=== PATIENT | male | born 1950 | race Caucasian/White ===

== ENCOUNTER 2016-08-03 10:00 | Inpatient (IN) ==
[2016-08-03 12:11] LABS: Basophils # (Auto) 0 K/mcL (0.0-0.3); Basophils % (Auto) 0.7 % (0.0-2.0); Eosinophils # (Auto) 0.1 K/mcL (0.0-0.7); Eosinophils % (Auto) 1.4 % (0.0-7.0); Granulocytes % (Auto) 59.3 % (38.0-78.0); Lymphocytes # (Auto) 1.5 K/mcL (1.5-4.8); Lymphocytes % (Auto) 27.2 % (15.5-49.0); Mean Cell Volume 94.7 fL (80.0-100.0); Mean Corpuscular HGB Conc 32.3 g/dL (31.0-36.0); Mean Corpuscular Hemoglobin 30.6 pg (26.0-34.0); Monocytes # (Auto) 0.6 K/mcL (0.1-0.9); Monocytes % (Auto) 11.4 % (1.0-9.0); Platelet Count 340 K/mcL (140-440); Red Cell Distribution Width 14.3 % (11.5-14.5)
[2016-08-03 12:12] LABS: Blood Urea Nitrogen 16 mg/dl (8-23)
[2016-08-03 13:37] LABS: Appearance,Urine CLEAR; Bilirubin,Urine NEG (NEG); Color,Urine YELLOW; Glucose,Urine (UA) NEGATIVE (NEG); Leukocyte Esterase,Urine NEG /uL (NEG); Nitrate,Urine NEG (NEG); Protein,Urine NEG (NEG); Urine Blood NEG mg/dL (<0.03); Urobilinogen,Urine NEG (NEG)
[2016-08-10] MEDS ORDERED: CLINDAMYCIN 900 MG in DEXTROSE 5% IN WATER 50 ML IV SCH (06:00)
[2016-08-10] MEDS ORDERED: PHENYLEPHRINE 10 MG/ML VIAL IV ONE (11:30)
[2016-08-10] MEDS ORDERED: KETAMINE 100 MG/ML ML IV ONE (11:30)
[2016-08-10] MEDS ORDERED: GLYCOPYRROLATE 0.2 MG/ML VIAL IV ONE (11:30)
[2016-08-10] MEDS ORDERED: LIDOCAINE HCL/PF 100 MG/5 ML SYRINGE IV ONE (11:30)
[2016-08-10] MEDS ORDERED: MIDAZOLAM 5 MG/5 ML VIAL IV ONE (11:30)
[2016-08-10] MEDS ORDERED: PROPOFOL 200 MG/20 ML VIAL IV ONE (11:30)
[2016-08-10] MEDS ORDERED: fentaNYL 100 MCG/2 ML VIAL IV ONE (11:30)
[2016-08-10] MEDS ORDERED: ONDANSETRON 4 MG/2 ML VIAL IV ONE (11:30)
[2016-08-10] MEDS ORDERED: GENTAMICIN SULFATE 800 MG/20 ML VIAL IR ONE (12:14)
[2016-08-10] MEDS ORDERED: ePHEDrine 50 MG/ML AMPUL IV PRN (12:20)
[2016-08-10] MEDS ORDERED: IPRATROPIUM/ALBUTEROL 3 ML AMPUL.NEB NEB PRN (12:20)
[2016-08-10] MEDS ORDERED: METHOCARBAMOL 1,000 MG/10 ML VIAL IV PRN (12:20)
[2016-08-10] MEDS ORDERED: PROMETHAZINE 25 MG/ML VIAL IV PRN (12:20)
[2016-08-10] MEDS ORDERED: MEPERIDINE 25 MG/ML SYRINGE IV PRN (12:20)
[2016-08-10] MEDS ORDERED: BENZOCAINE/MENTHOL 1 LOZENGE PO PRN (12:20)
--- NOTE | 2016-08-10 12:40 | Brief Operative Note ---
Date of procedure: 08/10/16 Pre-op diagnosis: right greater trochanter fx, bursitis, IT band tendonitis Post-op diagnosis: same Procedure: right greater trochanter ORIF, bursectomy, IT band lengthening Grafts/Implants: Yes Anesthesia: spinal Complications: none Surgeon: Rick Russo Manager Finance: Nagi Donovan Estimated blood loss (cc): 50 Specimens Removed/Pathology: none sent Condition: stable Disposition: PACU
--- NOTE | 2016-08-10 12:40 | Discharge Summary ---
Ortho Discharge Plan - General - Patient Instructions Diet: Regular Diet Activity: partial weight bearing Dressing Care: May shower in 2 days - Follow Up Plan Disposition: Home, Self-Care Prognosis: Good Rehab Potential: Good I certify that the patient requires SNF services: Yes Overall status at discharge: patient is progressing back to baseline
[2016-08-10] MEDS ORDERED: HYDROmorphone 2 MG/ML SYRINGE IV PRN (12:41)
[2016-08-10] MEDS ORDERED: BUPIVACAINE W/EPI 0.5% 50 ML VIAL IJ ONE (12:42)
[2016-08-10] MEDS ORDERED: LACTATED RINGERS 1,000 ML IV SCH ×2 (12:45)
[2016-08-10] MEDS: fentaNYL 100 MCG/2 ML VIAL IV PRN ×4 (13:20→13:33)
[2016-08-10] MEDS: HYDROmorphone 2 MG/ML SYRINGE IV PRN ×4 (13:25→13:40)
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
[2016-08-10] MEDS ORDERED: 0.9 % SODIUM CHLORIDE 10 ML SYRINGE IV SCH (14:00)
[2016-08-10] MEDS: HYDROcodone/APAP 10/325MG TABLET PO PRN ×2 (14:51→19:25)
[2016-08-11] MEDS ORDERED: ASPIRIN 325 MG ENTERIC COATED TABLET PO SCH (09:00)
== END 2016-08-10 21:44 | disposition home or self-care (01) | DRG 482 ==
LOC: MEDSUR 08-10 09:45 → EDSTATUS 08-10 11:30 → MEDSUR 08-10 11:57
PROVIDERS: ADMIT Orthopaedic Surgery Sports Medicine; ATTEND Orthopaedic Surgery Sports Medicine
PROC: ORIFHIP (2016-08-10 11:26)

== ENCOUNTER 2017-07-21 15:15 | Observation (INO) ==
[2017-07-21] MEDS ORDERED: IOPAMIDOL 100 ML BOTTLE IV ONE (15:16)
[2017-07-21] MEDS ORDERED: DILTIAZEM 25 MG/5 ML VIAL IV ONE (15:32)
[2017-07-21] MEDS ORDERED: DILTIAZEM 125 MG/25 ML VIAL IV ONE ×2 (15:44→15:45)
[2017-07-21] MEDS ORDERED: DILTIAZEM 125 MG in DEXTROSE 5% IN WATER 100 ML IV SCH (15:45)
[2017-07-21] MEDS ORDERED: 0.9 % SODIUM CHLORIDE 1,000 ML IV ONE (15:47)
[2017-07-21 16:37] LABS: Basophils # (Auto) 0 K/mcL (0.0-0.3); Basophils % (Auto) 0.5 % (0.0-2.0); Eosinophils # (Auto) 0.1 K/mcL (0.0-0.7); Granulocytes % (Auto) 69.3 % (38.0-78.0); Lymphocytes # (Auto) 2.4 K/mcL (1.5-4.8); Lymphocytes % (Auto) 21.9 % (15.5-49.0); Mean Cell Volume 93.7 fL (80.0-100.0); Monocytes # (Auto) 0.8 K/mcL (0.1-0.9); Monocytes % (Auto) 7.3 % (1.0-12.0); Platelet Count 313 K/mcL (140-440); RBC 4.77 M/mcL (4.50-5.90); Red Cell Distribution Width 14.6 % (11.5-14.5)
--- NOTE | 2017-07-21 16:43 | Cat Scan Report ---
CLINICAL INFORMATION: Chest pain. Dyspnea. COMPARISON: Previous chest x-ray dated 11/26/2016 TECHNIQUE: Axial images obtained through the chest. 80 mL intravenous contrast was administered, and scanning was performed during pulmonary arterial phase. Sagittally and coronally reformatted images were obtained. MIP reformatted images. FINDINGS: Main pulmonary artery, right pulmonary artery, left pulmonary artery are negative. No lobar or segmental abnormality. Pulmonary embolism. Mild centrilobular emphysema. Clinical correlation for smoking history recommended. No parenchymal consolidation. No pulmonary parenchymal mass. 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 Cross-sectional diameter measures 3.2 cm. A sending aorta measures 4.1 cm. There is calcified coronary artery disease. No pleural fluid. No pericardial fluid. No axillary adenopathy. No mediastinal or hilar adenopathy. Upper abdomen is negative. IMPRESSION: 1. Negative pulmonary CTA 2. Mild centrilobular emphysema 3. Ectasia of the descending thoracic aorta. Calcified coronary artery disease Interpreted and Authenticated by: Rick Mix 07/21/17
[2017-07-21 17:09] LABS: ALT/SGPT 14 U/l (0-40); Albumin 3.9 gm/dL (3.2-5.2); Albumin/Globulin Ratio 1.5 (1.0-2.3); Alkaline Phosphatase 59 U/L (39-117); Blood Urea Nitrogen 23 mg/dl (8-23)
--- NOTE | 2017-07-21 17:32 | Emergency Department Note ---
Arrhythmia/Palpitations HPI - General Chief Complaint: Arrhythmia/Palpitations Stated Complaint: afib, sob, back pain Time Seen by Provider: 07/21/17 15:25 Source: patient Mode of arrival: ambulatory Limitations: no limitations - History of Present Illness HPI Narrative: 66-year-old male with prior history of atrial fibrillation but no episodes in the last 6 months came in yesterday evening for an episode of atrial fibrillation with rapid ventricular response and increased blood pressure. He was treated by Dr. damon, who then released him to home at 3 AM. He was instructed to increase his metoprolol.He is not anticoagulated He comes back this evening after a syncopal episode and upper back and shoulder pain. He did fall when he had the syncopal episode but he did not injure himself or hurt his head. No headache. Lasted just a couple seconds. However more concerning is he has had multiple several second runs of V. tach. Unclear what triggered this episode of atrial fibrillation but he does report recently starting gabapentin for swelling in his hand-he has had a full workup including orthopedic hand consultation. The swelling has improved on this medicine but now he has this repeat episode of atrial fibrillation. Reviewed previous echocardiogram from 6 months ago on workup from previous episode of A. fib shows no abnormalities with an ejection fraction of 70%. - Related Data Home Medications Medication Instructions Recorded Confirmed Aspirin [Ecotrin] 325 mg PO ONCE 08/03/16 07/20/17 Previous Rx's Medication Instructions Recorded lisinopril 10 mg tablet 10 mg PO BID 90 Days #180 tab 03/07/17 metoprolol succinate ER 25 mg 25 mg PO QDAY #90 tab 06/06/17 tablet,extended release 24 hr Metoprolol Succinate [Toprol Xl] 25 mg PO BID #60 tab.xl.24h 07/20/17 gabapentin 100 mg capsule 100 mg PO TID #30 cap 07/20/17 Allergies Allergy/AdvReac Type Severity Reaction Status Date / Time Penicillins Allergy Severe Anaphylaxis Verified 07/20/17 22:15 Review of Systems All systems ED: reviewed and negative except as stated. Past Medical History - Past Medical History Attestation: Yes: The following information was validated with the patient. Medical history: Reports: atrial fibrillation, hypertension, kidney stones, other (trochanteric fracture of right femur. Meningitis. Colonoscopy. Chronic back pain and neck pain. Stomach ulcer.). Denies: coronary artery disease Surgical history ED: Reports: hip replacement, other (Partial gastrectomy, back surgery, lithotripsy) - Social History smoking status: Former smoker Alcohol use: Reports: None Drug use: Reports: none Physical Exam No acute distress resting comfortably. Normocephalic atraumatic. Conjunctive are clear sclerae nonicteric. No nasal discharge or congestion. Oropharynx pink moist. Neck is supple without lymphadenopathy thyromegaly or carotid bruit. Heart is irregularly irregular rhythm. No murmur appreciated. Lungs are clear to auscultation bilaterally without wheezes rales rhonchi or respiratory distress. Abdomen soft nontender nondistended. +2 radial pulse. His left hand has some mild edema with some redness over the MCP joints-patient says this is improved. He is able to move that hand normally. No pedal edema. Alert and oriented Limitations: no limitations Course Vital Signs Temperature 98.8 F 07/21/17 15:16 Pulse Rate 137 H 07/21/17 15:16 Respiratory Rate 17 07/21/17 15:16 Blood Pressure 121/78 07/21/17 15:16 Pulse Oximetry (%) 98 07/21/17 15:16 Temperature 98.8 F 07/21/17 15:16 Pulse Rate 66 07/21/17 18:20 Respiratory Rate 14 07/21/17 18:20 Blood Pressure 114/67 07/21/17 18:16 Pulse Oximetry (%) 98 07/21/17 18:20 Arrhythmia/Palpitations - Lab Data Lab results reviewed: Yes I reviewed the patient's lab results. Result diagrams: 07/21/17 16:01 07/21/17 16:01 Lab Results 07/21/17 07/21/17 07/21/17 Range/Units 16:01 16:01 16:01 WBC 11.0 (4.5-11.0) K/mcL RBC 4.77 (4.50-5.90) M/mcL Hgb 14.8 (13.5-16.5) g/dL Hct 44.7 (41.0-55.0) % POC Hct 45.0 (41.0-55.0) % MCV 93.7 (80.0-100.0) fL MCH 31.0 (26.0-34.0) pg MCHC 33.0 (31.0-36.0) g/dL RDW 14.6 H (11.5-14.5) % Plt Count 313 (140-440) K/mcL MPV 8.5 (7.4-10.4) fL Gran % 69.3 (38.0-78.0) % Lymph % (Auto) 21.9 (15.5-49.0) % Archer % (Auto) 7.3 (1.0-12.0) % Eos % (Auto) 1.0 (0.0-7.0) % Baso % (Auto) 0.5 (0.0-2.0) % Gran # 7.6 (1.8-8.0) K/mcL Lymph # (Auto) 2.4 (1.5-4.8) K/mcL Archer # (Auto) 0.8 (0.1-0.9) K/mcL Eos # (Auto) 0.1 (0.0-0.7) K/mcL Baso # (Auto) 0 (0.0-0.3) K/mcL POC Sodium 139 (133-145) mmol/L Sodium 134 (133-145) mmol/L POC Potassium 4.1 (3.3-5.1) mmol/L Potassium 4.1 (3.3-5.1) mmol/L POC Chloride 107 (96-108) mmol/L Chloride 99 (96-108) mmol/L Carbon Dioxide 18 L (22-30) mmol/L POC Total CO2 21 L (22-30) mmol/L Anion Gap 17.0 H (8-16) POC BUN 26 H (8-23) mg/dl BUN 23 (8-23) mg/dl Creatinine 1.1 (0.7-1.2) mg/dl POC Creatinine 1.1 (0.7-1.2) mg/dl GFR Calculation 69 Glucose 83 (70-105) mg/dL POC Glucose 83 (70-105) mg/dL Calcium 9.3 (8.6-10.4) mg/dl POC WB Ioniz Calcium 1.26 (1.16-1.32) mmol/L Magnesium 2.0 (1.6-2.5) mg/dL Total Bilirubin 0.3 (0.0-1.0) mg/dL AST 20 (0-37) U/l ALT 14 (0-40) U/l Alkaline Phosphatase 59 (39-117) U/L Troponin T < 0.01 (0-0.03) ng/ml Total Protein 6.5 (5.9-8.4) gm/dL Albumin 3.9 (3.2-5.2) gm/dL Globulin 2.6 (2.2-3.7) gm/dL Albumin/Globulin Ratio 1.5 (1.0-2.3) TSH 1.37 (0.27-5.01) uIU/ml - Radiology Data Radiology results reviewed: Yes I reviewed the patient's radiology results. CTA of the chest shows emphysema but no acute findings - EKG Data EKG attestation: Yes I reviewed and interpreted this EKG. EKG results narrative: EKG shows a rate of 146 atrial fibrillation rapid ventricular response. 1 PVC. Also reviewed his rhythm strips which showed several runs of V. tach lasting a few seconds at a time. These resolved with rate control on diltiazem drip Critical Care Time Critical Care Time: Yes Total Critical Care Time: 50 Attestation: I spent a total of 50 minutes with this patient including documentation, counseling the patient, reviewing his studies and coordination of care. About half at the bedside Disposition Pt seen by MOUNTING MACHINE OPERATOR/PA only: No Clinical Impression: Atrial fibrillation with RVR, Ventricular tachycardia (paroxysmal) Summary: He was quite anxious on initial exam and interview because the A. fib with RVR and V. tach. We started diltiazem drip as he had already essentially failed outpatient therapy with metoprolol. V. tach resolved with diltiazem Laboratory and CTA did not show any significant comorbidities. Discussed with hospitalist Dr. Menjivar agreed to accept the patient for further treatment, evaluation and monitoring Disposition: Xfer As Inpt ([facility]) Condition: Critical Referrals: Agusto Benavidez PA-C [Primary Care Provider] -
[2017-07-21] MEDS ORDERED: ONDANSETRON 4 MG/2 ML VIAL IV PRN (19:23)
[2017-07-21] MEDS ORDERED: ACETAMINOPHEN 325 MG TABLET PO PRN (19:23)
[2017-07-21] MEDS: METOPROLOL TARTRATE 25 MG TABLET PO SCH (20:37)
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
[2017-07-22] MEDS ORDERED: fentaNYL 100 MCG/2 ML VIAL IV ONE (01:05)
[2017-07-22] MEDS ORDERED: DILTIAZEM 125 MG in DEXTROSE 5% IN WATER 100 ML IV SCH (03:45)
[2017-07-22] MEDS ORDERED: GABAPENTIN 100 MG CAPSULE PO ONE ×2 (05:45→06:03)
[2017-07-22] MEDS ORDERED: DILTIAZEM 125 MG in DEXTROSE 5% IN WATER 100 ML IV PRN (08:15)
[2017-07-22] MEDS: METOPROLOL TARTRATE 25 MG TABLET PO SCH (08:24)
[2017-07-22] MEDS ORDERED: ASPIRIN 325 MG ENTERIC COATED TABLET PO SCH (09:00)
[2017-07-22] MEDS ORDERED: ENOXAPARIN 40 MG/0.4 ML SYRINGE SQ SCH (09:00)
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
== END 2017-07-22 10:35 | disposition home or self-care (01) ==
LOC: ICU 15:15 → ED 15:15 → ICU 19:15
PROVIDERS: ADMIT Specialist; ATTEND Specialist

== ENCOUNTER 2023-04-21 08:52 | Inpatient (IN) ==
[2023-04-21] MEDS ORDERED: IOPAMIDOL 100 ML BOTTLE IV ONE (08:53)
[2023-04-21] MEDS ORDERED: VANCOMYCIN 1,000 MG in 0.9 % SODIUM CHLORIDE 500 ML IV ONE (09:14)
[2023-04-21] MEDS ORDERED: 0.9 % SODIUM CHLORIDE 1,000 ML IV ONE ×2 (09:14→11:00)
[2023-04-21] MEDS ORDERED: CLINDAMYCIN 150 MG CAPSULE PO STA (09:18)
[2023-04-21] MEDS ORDERED: VANCOMYCIN 1,000 MG in 0.9 % SODIUM CHLORIDE 250 ML IV SCH (09:30)
[2023-04-21 09:33] LABS: POC Calcium, Ionized 1.12 (1.16-1.32); POC Creatinine 0.8 (0.6-1.2); POC Potassium 4.2 (3.3-5.1)
[2023-04-21] MEDS ORDERED: HYDROmorphone 1 MG/ML SYRINGE IV ONE (09:35)
[2023-04-21 10:44] LABS: Basophils # (Auto) 0.03 K/mcL (0.00-0.30); Basophils % (Auto) 0.1 % (0.0-2.0); Eosinophils # (Auto) 0 K/mcL (0.00-0.70); Eosinophils % (Auto) 0 % (0.0-7.0); Hematocrit 41.4 % (40.1-51.0); Hemoglobin 13.4 g/dL (13.7-17.5); Lymphocytes # (Auto) 0.35 K/mcL (1.50-4.80); Lymphocytes % (Auto) 1.6 % (15.5-49.0); Mean Corpuscular HGB Conc 32.4 g/dL (31.0-36.0); Mean Platelet Volume 10.1 fL (8.8-12.5); Monocytes # (Auto) 2.22 K/mcL (0.10-0.90); Monocytes % (Auto) 10.2 % (1.0-12.0); Neutrophils % (Auto) 87.3 % (38.0-78.0); Platelet Count 352 K/mcL (140-440); Red Cell Distribution Width 18.3 % (11.5-14.5); WBC 21.8 K/mcL (4.5-11.0)
[2023-04-21 10:51] LABS: Erythrocyte Sedimentation Rate 53 mm/hr (0-20)
[2023-04-21] MEDS ORDERED: KETOROLAC 30 MG/ML VIAL IV ONE (11:09)
[2023-04-21] MEDS ORDERED: methylPREDNISolone SOD SUCC 125 MG/2 ML VIAL IV ONE (11:38)
[2023-04-21] MEDS ORDERED: ZOLPIDEM 5 MG TABLET PO PRN (13:46)
[2023-04-21] MEDS ORDERED: IPRATROPIUM/ALBUTEROL 3 ML AMPUL.NEB NEB PRN (13:46)
[2023-04-21] MEDS ORDERED: VANCOMYCIN PER PHARMACY IV SCH (13:46)
[2023-04-21] MEDS ORDERED: ONDANSETRON 4 MG/2 ML VIAL IV PRN (13:46)
[2023-04-21] MEDS: 0.9 % SODIUM CHLORIDE 1,000 ML IV SCH (14:04)
[2023-04-21] MEDS: 0.9 % SODIUM CHLORIDE 10 ML SYRINGE IV SCH ×2 (14:05→20:03)
[2023-04-21] MEDS: KETOROLAC 30 MG/ML VIAL IV PRN ×2 (14:19→20:11)
[2023-04-21] MEDS: ACETAMINOPHEN 325 MG TABLET PO PRN ×2 (14:19→20:10)
[2023-04-21] MEDS: morphine 4 MG/ML VIAL IV PRN ×2 (14:20→18:15)
[2023-04-21 15:27] LABS: Uric Acid 5.8 mg/dL (2.5-8.0)
[2023-04-21 15:34] LABS: Procalcitonin 0.18 ng/mL (<0.10)
[2023-04-21] MEDS: PIPERACILLIN SODIUM/TAZOBACTAM 3.375 GM in DEXTROSE 5% IN WATER 50 ML IV SCH ×2 (15:46→19:42)
[2023-04-21] MEDS: SENNOSIDES 1 TABLET PO SCH (20:02)
[2023-04-21] MEDS: DOCUSATE SODIUM 100 MG CAPSULE PO SCH (20:03)
[2023-04-21] MEDS: VANCOMYCIN 1,250 MG in 0.9 % SODIUM CHLORIDE 500 ML IV SCH (21:58)
[2023-04-22] MEDS: PIPERACILLIN SODIUM/TAZOBACTAM 3.375 GM in DEXTROSE 5% IN WATER 50 ML IV SCH ×4 (00:49→19:38)
[2023-04-22] MEDS: morphine 4 MG/ML VIAL IV PRN ×4 (01:00→19:38)
[2023-04-22] MEDS: 0.9 % SODIUM CHLORIDE 1,000 ML IV SCH ×2 (02:55→10:24)
[2023-04-22] MEDS: 0.9 % SODIUM CHLORIDE 10 ML SYRINGE IV SCH ×3 (04:46→20:42)
[2023-04-22] MEDS: KETOROLAC 30 MG/ML VIAL IV PRN ×2 (05:37→19:39)
[2023-04-22] MEDS: ACETAMINOPHEN 325 MG TABLET PO PRN ×2 (05:37→19:23)
[2023-04-22 10:06] LABS: ALT/SGPT 16 U/L (<40); AST/SGOT 17 U/L (<40); Albumin 2.9 gm/dL (3.2-5.2); Albumin/Globulin Ratio 1.1 (1.0-2.3); Alkaline Phosphatase 57 U/L (39-117); Bilirubin,Total 0.4 mg/dL (0.1-1.0); Blood Urea Nitrogen 21 mg/dL (8-23); Calcium 8.9 mg/dL (8.6-10.4); Carbon Dioxide 19 mmol/L (22-30); Chloride 103 mmol/L (96-108); Globulin 2.6 gm/dL (2.2-3.7); Glomerular Filtration Rate 93; Glucose 118 mg/dL (70-105)
[2023-04-22] MEDS: DOCUSATE SODIUM 100 MG CAPSULE PO SCH ×2 (10:24→20:42)
[2023-04-22] MEDS: LISINOPRIL 10 MG TABLET PO SCH (10:24)
[2023-04-22] MEDS: MULTIVIT,THER IRON,CA,FA & MIN 1 TABLET PO SCH (10:24)
[2023-04-22] MEDS: ENOXAPARIN 40 MG/0.4 ML SYRINGE SQ SCH (10:24)
[2023-04-22 11:53] LABS: Basophils # (Auto) 0.03 K/mcL (0.00-0.30); Basophils % (Auto) 0.2 % (0.0-2.0); Eosinophils # (Auto) 0.18 K/mcL (0.00-0.70); Hematocrit 43.9 % (40.1-51.0); Hemoglobin 14.2 g/dL (13.7-17.5); Lymphocytes # (Auto) 0.63 K/mcL (1.50-4.80); Lymphocytes % (Auto) 3.6 % (15.5-49.0); Mean Cell Volume 90.3 fL (80.0-100.0); Mean Corpuscular HGB Conc 32.3 g/dL (31.0-36.0); Mean Platelet Volume 10.9 fL (8.8-12.5); Monocytes # (Auto) 1.43 K/mcL (0.10-0.90); Monocytes % (Auto) 8.1 % (1.0-12.0); Neutrophils % (Auto) 86.4 % (38.0-78.0); Platelet Count 240 K/mcL (140-440); RBC 4.86 M/mcL (4.63-6.08); Red Cell Distribution Width 19.1 % (11.5-14.5); WBC 17.6 K/mcL (4.5-11.0)
[2023-04-22] MEDS: oxyCODONE/APAP 10/325MG TABLET PO PRN (13:24)
[2023-04-22] MEDS: SENNOSIDES 1 TABLET PO SCH (20:42)
[2023-04-22] MEDS: VANCOMYCIN 1,250 MG in 0.9 % SODIUM CHLORIDE 500 ML IV SCH (23:13)
[2023-04-23] MEDS: PIPERACILLIN SODIUM/TAZOBACTAM 3.375 GM in DEXTROSE 5% IN WATER 50 ML IV SCH ×5 (00:21→23:12)
[2023-04-23] MEDS: KETOROLAC 30 MG/ML VIAL IV PRN (04:44)
[2023-04-23] MEDS: morphine 4 MG/ML VIAL IV PRN ×4 (05:00→20:46)
[2023-04-23] MEDS: oxyCODONE/APAP 10/325MG TABLET PO PRN ×4 (05:02→20:47)
[2023-04-23] MEDS ORDERED: LORazepam 2 MG/ML VIAL IV ONE (05:14)
[2023-04-23] MEDS ORDERED: LORazepam 2 MG/ML VIAL ONE (05:17)
[2023-04-23] MEDS: 0.9 % SODIUM CHLORIDE 1,000 ML IV SCH ×2 (05:21→05:46)
[2023-04-23] MEDS: 0.9 % SODIUM CHLORIDE 10 ML SYRINGE IV SCH ×3 (06:18→22:07)
[2023-04-23 07:58] LABS: ALT/SGPT 14 U/L (<40); AST/SGOT 17 U/L (<40); Albumin 2.6 gm/dL (3.2-5.2); Albumin/Globulin Ratio 1.3 (1.0-2.3); Alkaline Phosphatase 45 U/L (39-117); Bilirubin,Total 0.4 mg/dL (0.1-1.0); Blood Urea Nitrogen 27 mg/dL (8-23); Calcium 8.3 mg/dL (8.6-10.4); Carbon Dioxide 20 mmol/L (22-30); Chloride 104 mmol/L (96-108); Glomerular Filtration Rate 84; Glucose 93 mg/dL (70-105)
[2023-04-23] MEDS: LISINOPRIL 10 MG TABLET PO SCH (09:22)
[2023-04-23] MEDS: ENOXAPARIN 40 MG/0.4 ML SYRINGE SQ SCH (09:22)
[2023-04-23] MEDS: DOCUSATE SODIUM 100 MG CAPSULE PO SCH (09:23)
[2023-04-23] MEDS: MULTIVIT,THER IRON,CA,FA & MIN 1 TABLET PO SCH (09:23)
[2023-04-23] MEDS ORDERED: LOPERAMIDE 2 MG CAPSULE PO PRN (13:06)
[2023-04-23] MEDS ORDERED: LORazepam 2 MG/ML VIAL IV PRN (19:30)
[2023-04-23] MEDS ORDERED: HYDROmorphone 1 MG/ML SYRINGE ONE (22:05)
[2023-04-23] MEDS: HYDROmorphone 1 MG/ML SYRINGE IV PRN (22:06)
[2023-04-24] MEDS ORDERED: HYDROmorphone 1 MG/ML SYRINGE ONE (05:14)
[2023-04-24] MEDS: PIPERACILLIN SODIUM/TAZOBACTAM 3.375 GM in DEXTROSE 5% IN WATER 50 ML IV SCH ×4 (05:17→23:35)
[2023-04-24] MEDS: HYDROmorphone 1 MG/ML SYRINGE IV PRN ×4 (05:17→22:44)
[2023-04-24] MEDS: 0.9 % SODIUM CHLORIDE 10 ML SYRINGE IV SCH ×3 (06:06→22:44)
[2023-04-24] MEDS: ENOXAPARIN 40 MG/0.4 ML SYRINGE SQ SCH (08:26)
[2023-04-24] MEDS: LISINOPRIL 10 MG TABLET PO SCH (08:27)
[2023-04-24] MEDS: MULTIVIT,THER IRON,CA,FA & MIN 1 TABLET PO SCH (08:27)
[2023-04-24 08:34] LABS: Basophils # (Auto) 0.02 K/mcL (0.00-0.30); Basophils % (Auto) 0.2 % (0.0-2.0); Eosinophils # (Auto) 0.07 K/mcL (0.00-0.70); Eosinophils % (Auto) 0.8 % (0.0-7.0); Hematocrit 36.4 % (40.1-51.0); Hemoglobin 11.1 g/dL (13.7-17.5); Lymphocytes % (Auto) 10.9 % (15.5-49.0); Mean Cell Volume 94.5 fL (80.0-100.0); Mean Corpuscular HGB Conc 30.5 g/dL (31.0-36.0); Mean Platelet Volume 10.2 fL (8.8-12.5); Monocytes # (Auto) 1.11 K/mcL (0.10-0.90); Monocytes % (Auto) 13.4 % (1.0-12.0); Neutrophils % (Auto) 73.4 % (38.0-78.0); Platelet Count 268 K/mcL (140-440); RBC 3.85 M/mcL (4.63-6.08); Red Cell Distribution Width 18.6 % (11.5-14.5); WBC 8.3 K/mcL (4.5-11.0)
[2023-04-24] MEDS: oxyCODONE/APAP 10/325MG TABLET PO PRN (08:39)
[2023-04-24 08:59] LABS: ALT/SGPT 18 U/L (<40); AST/SGOT 23 U/L (<40); Albumin 2.4 gm/dL (3.2-5.2); Alkaline Phosphatase 67 U/L (39-117); Bilirubin,Total 0.5 mg/dL (0.1-1.0); Blood Urea Nitrogen 20 mg/dL (8-23); Calcium 8.4 mg/dL (8.6-10.4); Carbon Dioxide 26 mmol/L (22-30); Chloride 101 mmol/L (96-108); Globulin 2.4 gm/dL (2.2-3.7); Glomerular Filtration Rate 88; Glucose 87 mg/dL (70-105)
[2023-04-24] MEDS: KETOROLAC 30 MG/ML VIAL IV PRN ×2 (10:40→19:26)
[2023-04-25] MEDS: HYDROmorphone 1 MG/ML SYRINGE IV PRN ×4 (04:45→21:15)
[2023-04-25] MEDS: PIPERACILLIN SODIUM/TAZOBACTAM 3.375 GM in DEXTROSE 5% IN WATER 50 ML IV SCH (05:03)
[2023-04-25] MEDS: 0.9 % SODIUM CHLORIDE 10 ML SYRINGE IV SCH ×3 (05:07→21:16)
[2023-04-25] MEDS: KETOROLAC 30 MG/ML VIAL IV PRN ×2 (05:49→17:03)
[2023-04-25 07:17] LABS: Basophils # (Auto) 0.02 K/mcL (0.00-0.30); Basophils % (Auto) 0.3 % (0.0-2.0); Eosinophils % (Auto) 1.3 % (0.0-7.0); Hematocrit 39.2 % (40.1-51.0); Hemoglobin 11.6 g/dL (13.7-17.5); Lymphocytes # (Auto) 0.94 K/mcL (1.50-4.80); Lymphocytes % (Auto) 12.6 % (15.5-49.0); Mean Cell Volume 97.3 fL (80.0-100.0); Mean Corpuscular HGB Conc 29.6 g/dL (31.0-36.0); Mean Platelet Volume 9.6 fL (8.8-12.5); Monocytes # (Auto) 1.17 K/mcL (0.10-0.90); Monocytes % (Auto) 15.6 % (1.0-12.0); Neutrophils % (Auto) 69.1 % (38.0-78.0); Platelet Count 248 K/mcL (140-440); RBC 4.03 M/mcL (4.63-6.08); Red Cell Distribution Width 18.3 % (11.5-14.5); WBC 7.5 K/mcL (4.5-11.0)
[2023-04-25 07:46] LABS: ALT/SGPT 29 U/L (<40); AST/SGOT 33 U/L (<40); Albumin 2.1 gm/dL (3.2-5.2); Albumin/Globulin Ratio 0.7 (1.0-2.3); Alkaline Phosphatase 83 U/L (39-117); Bilirubin,Direct 0.5 mg/dL (<0.3); Bilirubin,Total 0.7 mg/dL (0.1-1.0); Blood Urea Nitrogen 20 mg/dL (8-23); Calcium 8.3 mg/dL (8.6-10.4); Carbon Dioxide 22 mmol/L (22-30); Chloride 101 mmol/L (96-108); Globulin 3.1 gm/dL (2.2-3.7); Glomerular Filtration Rate 88; Glucose 95 mg/dL (70-105); Lactate Dehydrogenase 151 U/L (135-225); Phosphorous 3.1 mg/dL (2.5-4.5); Triglycerides 126 mg/dL (<150); Uric Acid 3.7 mg/dL (2.5-8.0)
[2023-04-25] MEDS ORDERED: FUROSEMIDE 40 MG/4 ML VIAL IV ONE (08:19)
[2023-04-25] MEDS ORDERED: ALBUMIN HUMAN 12.5 GM/50 ML VIAL IV ONE (08:19)
[2023-04-25] MEDS ORDERED: METOPROLOL SUCCINATE 25 MG TAB.XL.24H PO SCH (09:00)
[2023-04-25] MEDS: ENOXAPARIN 40 MG/0.4 ML SYRINGE SQ SCH (11:43)
[2023-04-25] MEDS: MULTIVIT,THER IRON,CA,FA & MIN 1 TABLET PO SCH (11:43)
[2023-04-25] MEDS: LISINOPRIL 10 MG TABLET PO SCH (11:43)
[2023-04-25] MEDS: oxyCODONE/APAP 10/325MG TABLET PO PRN ×2 (12:12→17:02)
[2023-04-25] MEDS ORDERED: FUROSEMIDE 40 MG/4 ML VIAL IV SCH (13:15)
[2023-04-25] MEDS: ceFAZolin 1 GM VIAL IV SCH ×2 (13:17→21:15)
[2023-04-26] MEDS: oxyCODONE/APAP 10/325MG TABLET PO PRN ×2 (03:59→11:37)
[2023-04-26] MEDS: KETOROLAC 30 MG/ML VIAL IV PRN (04:00)
[2023-04-26] MEDS: ceFAZolin 1 GM VIAL IV SCH ×2 (05:15→15:10)
[2023-04-26] MEDS: HYDROmorphone 1 MG/ML SYRINGE IV PRN (05:16)
[2023-04-26] MEDS: 0.9 % SODIUM CHLORIDE 10 ML SYRINGE IV SCH ×2 (05:16→15:11)
[2023-04-26] MEDS: LISINOPRIL 10 MG TABLET PO SCH (09:39)
[2023-04-26] MEDS: MULTIVIT,THER IRON,CA,FA & MIN 1 TABLET PO SCH (09:39)
[2023-04-26] MEDS: ENOXAPARIN 40 MG/0.4 ML SYRINGE SQ SCH (09:39)
[2023-04-28] MEDS ORDERED: VITAMIN D3 25 MCG TABLET PO SCH (09:00)
== END 2023-04-26 14:15 | disposition home or self-care (01) | DRG 603 ==
LOC: ED 08:52 → MEDSUR 13:24
PROVIDERS: ADMIT Internal Medicine; ATTEND Internal Medicine

== ENCOUNTER 2023-04-27 15:46 | Inpatient (IN) ==
[2023-04-27] MEDS ORDERED: IOPAMIDOL 100 ML BOTTLE IV ONE (15:47)
[2023-04-27] MEDS ORDERED: 0.9 % SODIUM CHLORIDE 1,000 ML IV ONE (15:57)
[2023-04-27] MEDS ORDERED: DILTIAZEM 25 MG/5 ML VIAL IV ONE (15:57)
[2023-04-27 16:17] LABS: POC Calcium, Ionized 0.97 (1.16-1.32); POC Creatinine 0.5 (0.6-1.2); POC Potassium 2.5 (3.3-5.1)
[2023-04-27] MEDS ORDERED: POTASSIUM CHLORIDE 20 MEQ TABLET PO ONE (16:29)
[2023-04-27] MEDS ORDERED: POTASSIUM CHLORIDE 40 MEQ in DEXTROSE 5% IN WATER 500 ML IV ONE (16:30)
[2023-04-27 17:08] LABS: Basophils # (Auto) 0.02 K/mcL (0.00-0.30); Basophils % (Auto) 0.2 % (0.0-2.0); Eosinophils # (Auto) 0.07 K/mcL (0.00-0.70); Eosinophils % (Auto) 0.7 % (0.0-7.0); Hemoglobin 9.7 g/dL (13.7-17.5); Lymphocytes # (Auto) 1.11 K/mcL (1.50-4.80); Lymphocytes % (Auto) 10.4 % (15.5-49.0); Mean Cell Volume 93.7 fL (80.0-100.0); Mean Corpuscular HGB Conc 31.3 g/dL (31.0-36.0); Mean Platelet Volume 10.1 fL (8.8-12.5); Monocytes # (Auto) 1.48 K/mcL (0.10-0.90); Monocytes % (Auto) 13.8 % (1.0-12.0); Neutrophils % (Auto) 73.5 % (38.0-78.0); Platelet Count 277 K/mcL (140-440); RBC 3.31 M/mcL (4.63-6.08); Red Cell Distribution Width 17.9 % (11.5-14.5); WBC 10.7 K/mcL (4.5-11.0)
[2023-04-27 17:47] LABS: ALT/SGPT 35 U/L (<40); AST/SGOT 36 U/L (<40); Albumin 2.4 gm/dL (3.2-5.2); Alkaline Phosphatase 72 U/L (39-117); Bilirubin,Total 0.2 mg/dL (0.1-1.0); Blood Urea Nitrogen 13 mg/dL (8-23); Calcium 6.7 mg/dL (8.6-10.4); Carbon Dioxide 17 mmol/L (22-30); Chloride 109 mmol/L (96-108); Globulin 2.5 gm/dL (2.2-3.7); Glomerular Filtration Rate 107; Glucose 89 mg/dL (70-105)
[2023-04-27] MEDS ORDERED: MAGNESIUM OXIDE 400 MG TABLET PO ONE (18:19)
[2023-04-27] MEDS: DILTIAZEM 125 MG in DEXTROSE 5% IN WATER 100 ML IV SCH (18:21)
[2023-04-27] MEDS ORDERED: oxyCODONE IR 5 MG TABLET PO ONE (18:34)
[2023-04-27] MEDS ORDERED: CALCIUM GLUCONATE 4.65 MEQ/10 ML VIAL IV ONE (19:21)
[2023-04-27] MEDS ORDERED: CALCIUM GLUCONATE 9.3 MEQ in DEXTROSE 5% IN WATER 50 ML IV ONE (19:45)
[2023-04-27 21:05] LABS: Anisocytosis 2+ (None Seen); Basophils % (Manual) 1 % (0-2); Hypochromasia 1+ (None Seen); Lymphocytes % 12 % (15-49); Monocytes % (Manual) 11 % (1-12); Platelet Estimate NORMAL (Normal); RBC Morphology ABNORMAL (Normal); Reactive Lymphocytes 1 % (0-2); Segmented Neutrophils % 75 % (38-78)
[2023-04-27 21:34] LABS: Thyroid Stimulating Hormone 2.53 uIU/mL (0.27-5.01)
[2023-04-27] MEDS ORDERED: CLINDAMYCIN IN 0.9 % SOD CHLOR 600 MG/50 ML BAG IV ONE (21:51)
[2023-04-27] MEDS ORDERED: POLYETHYLENE GLYCOL 3350 17 GM PACKET PO PRN (22:31)
[2023-04-27] MEDS ORDERED: FUROSEMIDE 40 MG/4 ML VIAL IV ONE ×2 (22:31→23:15)
[2023-04-27] MEDS ORDERED: MAGNESIUM SULFATE 2 GM/50 ML BAG IV PRN (22:31)
[2023-04-27] MEDS ORDERED: MAGNESIUM SULFATE 1 GM/100 ML BAG IV ONE (22:31)
[2023-04-27] MEDS ORDERED: ONDANSETRON 4 MG/2 ML VIAL IV PRN (22:31)
[2023-04-27] MEDS ORDERED: IPRATROPIUM/ALBUTEROL 3 ML AMPUL.NEB NEB PRN (22:31)
[2023-04-27] MEDS ORDERED: SENNOSIDES 1 TABLET PO PRN (22:31)
[2023-04-27] MEDS ORDERED: METOPROLOL TARTRATE 5 MG/5 ML VIAL IV PRN (22:31)
[2023-04-27] MEDS ORDERED: ALBUMIN HUMAN 12.5 GM/50 ML VIAL IV ONE (22:31)
[2023-04-27] MEDS ORDERED: POTASSIUM CHLORIDE 40 MEQ in DEXTROSE 5% IN WATER 500 ML IV PRN (22:31)
[2023-04-27] MEDS ORDERED: POTASSIUM CHLORIDE 20 MEQ TABLET PO PRN ×2 (22:31)
[2023-04-27] MEDS ORDERED: HYDROmorphone 1 MG/ML SYRINGE ONE (22:33)
[2023-04-27] MEDS: HYDROmorphone 1 MG/ML SYRINGE IV PRN (22:38)
[2023-04-27] MEDS ORDERED: ceFAZolin 1 GM VIAL ONE (23:15)
[2023-04-27] MEDS ORDERED: MAGNESIUM SULFATE 8.12 MEQ/2 ML VIAL ONE (23:15)
[2023-04-27] MEDS ORDERED: ALBUMIN HUMAN 50 ML IV ONE (23:16)
[2023-04-27] MEDS: ceFAZolin 1 GM VIAL IV SCH (23:31)
[2023-04-27] MEDS: DOCUSATE SODIUM 100 MG CAPSULE PO SCH ×2 (23:31→23:33)
[2023-04-28] MEDS ORDERED: oxyCODONE/APAP 10/325MG TABLET PO ONE ×2 (00:51→05:45)
[2023-04-28] MEDS: oxyCODONE/APAP 10/325MG TABLET PO PRN ×4 (00:52→18:26)
[2023-04-28] MEDS: CLINDAMYCIN 600 MG/50 ML NS BAG IV SCH ×2 (01:28→08:24)
[2023-04-28] MEDS ORDERED: DILTIAZEM 125 MG/25 ML VIAL IV ONE (02:22)
[2023-04-28] MEDS: DILTIAZEM 125 MG in DEXTROSE 5% IN WATER 100 ML IV SCH ×3 (02:28→17:18)
[2023-04-28] MEDS ORDERED: HYDROmorphone 1 MG/ML SYRINGE ONE (03:22)
[2023-04-28] MEDS: HYDROmorphone 1 MG/ML SYRINGE IV PRN (03:23)
[2023-04-28] MEDS ORDERED: CLINDAMYCIN 600 MG in DEXTROSE 5% IN WATER 50 ML IV SCH (06:00)
[2023-04-28 06:46] LABS: Basophils # (Auto) 0.04 K/mcL (0.00-0.30); Basophils % (Auto) 0.4 % (0.0-2.0); Hematocrit 33.7 % (40.1-51.0); Hemoglobin 10.3 g/dL (13.7-17.5); Lymphocytes # (Auto) 1.32 K/mcL (1.50-4.80); Lymphocytes % (Auto) 12.6 % (15.5-49.0); Mean Cell Volume 94.7 fL (80.0-100.0); Mean Corpuscular HGB Conc 30.6 g/dL (31.0-36.0); Monocytes # (Auto) 1.61 K/mcL (0.10-0.90); Monocytes % (Auto) 15.4 % (1.0-12.0); Neutrophils % (Auto) 69.5 % (38.0-78.0); Platelet Count 312 K/mcL (140-440); RBC 3.56 M/mcL (4.63-6.08); Red Cell Distribution Width 18.4 % (11.5-14.5); WBC 10.5 K/mcL (4.5-11.0)
[2023-04-28 07:10] LABS: ALT/SGPT 38 U/L (<40); AST/SGOT 47 U/L (<40); Albumin 2.9 gm/dL (3.2-5.2); Alkaline Phosphatase 85 U/L (39-117); Bilirubin,Direct < 0.2 mg/dL (0-0.3); Bilirubin,Total 0.4 mg/dL (0.1-1.0); Blood Urea Nitrogen 12 mg/dL (8-23); Calcium 8.5 mg/dL (8.6-10.4); Carbon Dioxide 23 mmol/L (22-30); Chloride 102 mmol/L (96-108); Globulin 2.8 gm/dL (2.2-3.7); Glomerular Filtration Rate 93; Glucose 105 mg/dL (70-105); Lactate Dehydrogenase 181 U/L (135-225); Phosphorous 3.1 mg/dL (2.5-4.5); Triglycerides 111 mg/dL (<150); Uric Acid 6.1 mg/dL (2.5-8.0)
[2023-04-28] MEDS: CLINDAMYCIN IN 0.9 % SOD CHLOR 600 MG/50 ML BAG IV SCH ×3 (07:22→20:56)
[2023-04-28] MEDS: ceFAZolin 1 GM VIAL IV SCH ×3 (07:59→22:55)
[2023-04-28] MEDS: ENOXAPARIN 40 MG/0.4 ML SYRINGE SQ SCH (08:55)
[2023-04-28] MEDS: DOCUSATE SODIUM 100 MG CAPSULE PO SCH ×3 (08:55→20:56)
[2023-04-28] MEDS ORDERED: FUROSEMIDE 40 MG/4 ML VIAL IV SCH (09:00)
[2023-04-28] MEDS ORDERED: methylPREDNISolone SOD SUCC 125 MG/2 ML VIAL IV SCH (09:00)
[2023-04-28] MEDS: DILTIAZEM 180 MG CAP.XL.24H PO SCH (11:40)
[2023-04-28] MEDS: methylPREDNISolone SOD SUCC 125 MG/2 ML VIAL IV SCH (20:55)
[2023-04-29] MEDS: oxyCODONE/APAP 10/325MG TABLET PO PRN ×4 (00:25→19:34)
[2023-04-29] MEDS: DILTIAZEM 125 MG in DEXTROSE 5% IN WATER 100 ML IV SCH (04:29)
[2023-04-29] MEDS: CLINDAMYCIN IN 0.9 % SOD CHLOR 600 MG/50 ML BAG IV SCH ×3 (05:09→21:27)
[2023-04-29] MEDS: ceFAZolin 1 GM VIAL IV SCH ×3 (07:33→23:48)
[2023-04-29 08:10] LABS: ALT/SGPT 43 U/L (<40); AST/SGOT 45 U/L (<40); Albumin 3.5 gm/dL (3.2-5.2); Albumin/Globulin Ratio 1.1 (1.0-2.3); Alkaline Phosphatase 92 U/L (39-117); Bilirubin,Direct < 0.2 mg/dL (0-0.3); Bilirubin,Total 0.3 mg/dL (0.1-1.0); Blood Urea Nitrogen 22 mg/dL (8-23); Calcium 9.4 mg/dL (8.6-10.4); Carbon Dioxide 26 mmol/L (22-30); Chloride 99 mmol/L (96-108); Globulin 3.1 gm/dL (2.2-3.7); Glomerular Filtration Rate 88; Glucose 164 mg/dL (70-105); Lactate Dehydrogenase 218 U/L (135-225); Phosphorous 3.3 mg/dL (2.5-4.5); Triglycerides 98 mg/dL (<150); Uric Acid 6.1 mg/dL (2.5-8.0)
[2023-04-29] MEDS ORDERED: HYDROCHLOROTHIAZIDE 12.5 MG CAPSULE PO ONE (08:52)
[2023-04-29] MEDS ORDERED: FUROSEMIDE 40 MG/4 ML VIAL IV ONE (08:52)
[2023-04-29] MEDS: DILTIAZEM 180 MG CAP.XL.24H PO SCH (09:54)
[2023-04-29] MEDS: ENOXAPARIN 40 MG/0.4 ML SYRINGE SQ SCH (09:55)
[2023-04-29] MEDS: methylPREDNISolone SOD SUCC 125 MG/2 ML VIAL IV SCH ×2 (09:55→21:27)
[2023-04-29] MEDS: DOCUSATE SODIUM 100 MG CAPSULE PO SCH ×2 (09:55→21:27)
[2023-04-30] MEDS: CLINDAMYCIN IN 0.9 % SOD CHLOR 600 MG/50 ML BAG IV SCH ×3 (05:55→22:42)
[2023-04-30 07:23] LABS: ALT/SGPT 39 U/L (<40); AST/SGOT 33 U/L (<40); Albumin 3.5 gm/dL (3.2-5.2); Albumin/Globulin Ratio 1.3 (1.0-2.3); Alkaline Phosphatase 82 U/L (39-117); Bilirubin,Direct < 0.2 mg/dL (0-0.3); Bilirubin,Total 0.2 mg/dL (0.1-1.0); Blood Urea Nitrogen 33 mg/dL (8-23); Calcium 9.5 mg/dL (8.6-10.4); Carbon Dioxide 28 mmol/L (22-30); Chloride 97 mmol/L (96-108); Globulin 2.8 gm/dL (2.2-3.7); Glomerular Filtration Rate 88; Glucose 153 mg/dL (70-105); Lactate Dehydrogenase 182 U/L (135-225); Phosphorous 3.4 mg/dL (2.5-4.5); Triglycerides 126 mg/dL (<150); Uric Acid 5.8 mg/dL (2.5-8.0)
[2023-04-30] MEDS: oxyCODONE/APAP 10/325MG TABLET PO PRN ×4 (07:34→22:48)
[2023-04-30] MEDS: ceFAZolin 1 GM VIAL IV SCH ×3 (07:35→22:41)
[2023-04-30] MEDS: DILTIAZEM 180 MG CAP.XL.24H PO SCH (09:04)
[2023-04-30] MEDS: ENOXAPARIN 40 MG/0.4 ML SYRINGE SQ SCH (09:04)
[2023-04-30] MEDS: methylPREDNISolone SOD SUCC 125 MG/2 ML VIAL IV SCH ×2 (09:05→20:05)
[2023-04-30] MEDS: DOCUSATE SODIUM 100 MG CAPSULE PO SCH ×2 (09:07→20:06)
[2023-05-01] MEDS: CLINDAMYCIN IN 0.9 % SOD CHLOR 600 MG/50 ML BAG IV SCH (05:29)
[2023-05-01] MEDS: ceFAZolin 1 GM VIAL IV SCH (07:29)
[2023-05-01] MEDS: DOCUSATE SODIUM 100 MG CAPSULE PO SCH (09:14)
[2023-05-01] MEDS: ENOXAPARIN 40 MG/0.4 ML SYRINGE SQ SCH (09:14)
[2023-05-01] MEDS: DILTIAZEM 180 MG CAP.XL.24H PO SCH (09:14)
[2023-05-01] MEDS: methylPREDNISolone SOD SUCC 125 MG/2 ML VIAL IV SCH (09:15)
[2023-05-01] MEDS: oxyCODONE/APAP 10/325MG TABLET PO PRN (09:15)
[2023-05-01 09:47] LABS: Basophils # (Auto) 0 K/mcL (0.00-0.30); Basophils % (Auto) 0 % (0.0-2.0); Eosinophils # (Auto) 0 K/mcL (0.00-0.70); Eosinophils % (Auto) 0 % (0.0-7.0); Hemoglobin 11.2 g/dL (13.7-17.5); Lymphocytes # (Auto) 0.47 K/mcL (1.50-4.80); Lymphocytes % (Auto) 4.7 % (15.5-49.0); Mean Cell Volume 92.5 fL (80.0-100.0); Mean Corpuscular HGB Conc 31.1 g/dL (31.0-36.0); Mean Platelet Volume 9.9 fL (8.8-12.5); Monocytes # (Auto) 0.54 K/mcL (0.10-0.90); Monocytes % (Auto) 5.4 % (1.0-12.0); Neutrophils % (Auto) 89.4 % (38.0-78.0); Platelet Count 434 K/mcL (140-440); RBC 3.89 M/mcL (4.63-6.08); Red Cell Distribution Width 18.6 % (11.5-14.5); WBC 10.1 K/mcL (4.5-11.0)
[2023-05-01 10:04] LABS: ALT/SGPT 37 U/L (<40); AST/SGOT 27 U/L (<40); Albumin 3.5 gm/dL (3.2-5.2); Albumin/Globulin Ratio 1.2 (1.0-2.3); Alkaline Phosphatase 76 U/L (39-117); Bilirubin,Total 0.2 mg/dL (0.1-1.0); Blood Urea Nitrogen 34 mg/dL (8-23); Calcium 10.1 mg/dL (8.6-10.4); Carbon Dioxide 27 mmol/L (22-30); Chloride 97 mmol/L (96-108); Glomerular Filtration Rate 88; Glucose 140 mg/dL (70-105)
[2023-05-09 11:30] LABS: Antinuclear AB Pattern NUCLEAR, HOMOGENEOUS; DNA AB(DS) Crithidia, IFA POSITIVE (NEGATIVE); Rhuematoid Factor <14 IU/mL (<14); SM Antibody <1.0 NEG AI (<1.0 NEGATIVE); SM/RNP Antibody <1.0 NEG AI (<1.0 NEGATIVE); SS-A <1.0 NEG AI (<1.0 NEGATIVE); SS-B <1.0 NEG AI (<1.0 NEGATIVE); Scl-70 <1.0 NEG AI (<1.0 NEGATIVE)
== END 2023-05-01 14:20 | disposition home or self-care (01) | DRG 309 ==
LOC: ED 15:46 → ICU 22:24 → MEDSUR 04-30 16:39
PROVIDERS: ADMIT Internal Medicine; ATTEND Internal Medicine

== ENCOUNTER 2025-01-18 11:31 | Inpatient (IN) ==
[2025-01-18] MEDS ORDERED: IOPAMIDOL 100 ML BOTTLE IV ONE (11:32)
[2025-01-18 12:16] LABS: Basophils # (Auto) 0.03 K/mcL (0.00-0.30); Basophils % (Auto) 0.4 % (0.0-2.0); Eosinophils # (Auto) 0.03 K/mcL (0.00-0.70); Eosinophils % (Auto) 0.4 % (0.0-7.0); Hematocrit 45.1 % (40.1-51.0); Hemoglobin 14.4 g/dL (13.7-17.5); Lymphocytes # (Auto) 1.04 K/mcL (1.50-4.80); Lymphocytes % (Auto) 15.0 % (15.5-49.0); Mean Corpuscular HGB Conc 31.9 g/dL (31.0-36.0); Monocytes # (Auto) 0.75 K/mcL (0.10-0.90); Monocytes % (Auto) 10.8 % (1.0-12.0); Neutrophils % (Auto) 73.3 % (38.0-78.0); Platelet Count 269 K/mcL (140-440); RBC 4.66 M/mcL (4.63-6.08); WBC 6.9 K/mcL (4.5-11.0)
[2025-01-18] MEDS: MECLIZINE 25 MG TABLET PO ONE (12:36)
[2025-01-18] MEDS: ASPIRIN 81 MG TAB.CHEW CHEWED ONE (12:36)
[2025-01-18 12:41] LABS: INR 0.9 (0.9-1.1); Prothrombin Time 12.5 sec (11.9-14.5)
[2025-01-18] MEDS: CLOPIDOGREL 75 MG TABLET PO ONE (12:47)
[2025-01-18 13:05] LABS: Partial Thromboplastin Time 29.9 sec (20.0-37.0)
[2025-01-18 13:34] LABS: ALT/SGPT 15 U/L (<40); AST/SGOT 25 U/L (<40); Albumin 4.1 gm/dL (3.2-5.2); Albumin/Globulin Ratio 1.7 (1.0-2.3); Alkaline Phosphatase 60 U/L (39-117); Anion Gap 13.0 (8.0-16.0); Bilirubin,Total 0.3 mg/dL (0.1-1.0); Blood Urea Nitrogen 17 mg/dL (8-23); Calcium 9.3 mg/dL (8.6-10.4); Carbon Dioxide 21 mmol/L (22-30); Chloride 106 mmol/L (96-108); Globulin 2.4 gm/dL (2.2-3.7); Glucose 123 mg/dL (70-105); Potassium 4.6 mmol/L (3.3-5.1); Sodium 140 mmol/L (133-145)
[2025-01-18 15:24] LABS: Bilirubin,Urine Negative (Negative); Color,Urine Yellow; Glucose,Urine (UA) Negative (Negative); Ketones,Urine Negative (Negative); Leukocyte Esterase,Urine Negative /uL (Negative); PH,Urine 7.0 (5.0-9.0); Protein,Urine Negative (Negative); Specific Gravity,Urine 1.010 (1.000-1.035); Urobilinogen,Urine Normal
[2025-01-18] MEDS ORDERED: POTASSIUM CHLORIDE 20 MEQ TABLET PO PRN ×2 (15:37)
[2025-01-18] MEDS ORDERED: POTASSIUM CHLORIDE 40 MEQ in DEXTROSE 5% IN WATER 500 ML IV PRN (15:37)
[2025-01-18] MEDS ORDERED: IPRATROPIUM/ALBUTEROL 3 ML AMPUL.NEB NEB PRN (15:37)
[2025-01-18] MEDS ORDERED: SENNOSIDES 1 TABLET PO PRN (15:37)
[2025-01-18] MEDS ORDERED: POLYETHYLENE GLYCOL 3350 17 GM PACKET PO PRN (15:37)
[2025-01-18] MEDS ORDERED: MAGNESIUM SULFATE 2 GM/50 ML BAG IV PRN (15:37)
[2025-01-18] MEDS: 0.9 % SODIUM CHLORIDE 1,000 ML IV SCH (15:40)
[2025-01-18] MEDS: ONDANSETRON 4 MG/2 ML VIAL IV PRN (16:19)
[2025-01-18 17:13] LABS: HDL Cholesterol 62 mg/dL (>40); LDL Cholesterol,Calculated 82 mg/dL (<100); Triglycerides 84 mg/dL (<150)
[2025-01-18] MEDS: DIAZEPAM 10 MG/2 ML SYRINGE IV ONE (17:24)
[2025-01-18] MEDS: METOCLOPRAMIDE 10 MG/2 ML VIAL IV PRN (17:27)
[2025-01-18] MEDS: DIAZEPAM 10 MG/2 ML SYRINGE ONE (17:28)
[2025-01-18] MEDS: DOCUSATE SODIUM 100 MG CAPSULE PO SCH (20:26)
[2025-01-18] MEDS: ATORVASTATIN 40 MG TABLET PO SCH (20:26)
[2025-01-19] MEDS: ACETAMINOPHEN 325 MG TABLET PO PRN (03:05)
[2025-01-19] MEDS: ACETAMINOPHEN 325 MG TABLET PO ONE (03:20)
[2025-01-19 06:22] LABS: ALT/SGPT 12 U/L (<40); AST/SGOT 17 U/L (<40); Albumin 3.3 gm/dL (3.2-5.2); Albumin/Globulin Ratio 1.9 (1.0-2.3); Alkaline Phosphatase 47 U/L (39-117); Anion Gap 8.0 (8.0-16.0); Bilirubin,Direct 0.3 mg/dL (<0.3); Bilirubin,Total 0.6 mg/dL (0.1-1.0); Blood Urea Nitrogen 12 mg/dL (8-23); Calcium 8.6 mg/dL (8.6-10.4); Carbon Dioxide 23 mmol/L (22-30); Chloride 108 mmol/L (96-108); Globulin 1.7 gm/dL (2.2-3.7); Glucose 95 mg/dL (70-105); Phosphorous 2.5 mg/dL (2.5-4.5); Potassium 4.0 mmol/L (3.3-5.1); Sodium 139 mmol/L (133-145); Triglycerides 113 mg/dL (<150); Uric Acid 6.5 mg/dL (2.5-8.0)
[2025-01-19] MEDS: CLOPIDOGREL 75 MG TABLET PO SCH (09:39)
[2025-01-19] MEDS: ASPIRIN 81 MG TAB.CHEW CHEWED SCH (09:39)
[2025-01-19] MEDS: ENOXAPARIN 40 MG/0.4 ML SYRINGE SQ SCH (09:39)
[2025-01-19] MEDS: BUTALB/ACETAMINOPHEN/CAFFEINE 1 TABLET PO PRN (23:03)
[2025-01-20] MEDS ORDERED: 0.9 % SODIUM CHLORIDE 10 ML SYRINGE IV PRN (15:55)
[2025-01-20] MEDS: 0.9 % SODIUM CHLORIDE 10 ML SYRINGE IV SCH (20:18)
[2025-01-21] MEDS ORDERED: METHOCARBAMOL 1,000 MG/10 ML VIAL IV PRN (08:51)
[2025-01-21] MEDS: METHOCARBAMOL 1,000 MG/10 ML VIAL IV SCH (08:59)
[2025-01-21 14:38] VITALS: TEMP 97.8; O2SAT 93
== END 2025-01-21 14:35 | DRG 66 ==
LOC: ED 11:31 → ICU 11:31
PROVIDERS: ADMIT Internal Medicine; ATTEND Internal Medicine